=== PATIENT | female | born 1945 | race Caucasian/White ===

== ENCOUNTER 2019-08-01 16:52 | Emergency (ER) | payer MEDICARE, OTHER ==
[~2019-08-01] VITALS: Ht 165.1 cm; Wt 114.3 kg
[~2019-08-01 16:52] MED LIST: CEPHALEXIN500 MG PO; CYCLOBENZAPRINE10 MG PO; GLUCOPHAGE500 MG PO; HYDROCHLOROTHIA50 MG PO; MOBIC7.5 MG PO; NORCO 5-325 TA1 EACH PO; PCCA T4 SODIUM D1 GM MISC; SIMVASTATIN10 MG PO; TRAMADOL HCL50 MG PO
[2019-08-01] MEDS ORDERED: ONDANSETRON HCL4 MG PO (18:54)
[2019-08-01] MEDS ORDERED: SPIRONOLACTONE100 MG NG (18:54)
[2019-08-01] MEDS ORDERED: NORCO 5-325 TA1 EACH PO (22:59)
== END 2019-08-01 23:19 | disposition home or self-care (01) ==
LOC: ED 16:52
DX: S42.202A Unspecified fracture of upper end of left humerus, initial encounter for closed fracture (principal); I10 Essential (primary) hypertension; E11.9 Type 2 diabetes mellitus without complications; E03.9 Hypothyroidism, unspecified; Z87.891 Personal history of nicotine dependence; Z88.5 Allergy status to narcotic agent; Z79.899 Other long term (current) drug therapy; Z79.84 Long term (current) use of oral hypoglycemic drugs; W01.0XXA Fall on same level from slipping, tripping and stumbling without subsequent striking against object, initial encounter
CPT/HCPCS: 72125; 73030; 99284-25